=== PATIENT | male | born 1985 | race Hispanic/Latino ===

== ENCOUNTER 2017-11-29 09:19 | Emergency (ER) | payer SELFPAY ==
[2017-11-29] MEDS ORDERED: Ketorolac Tromethamine 60 MG/2 ML VIAL ONE (10:14)
--- NOTE | 2017-11-29 10:40 | RAD ---
AP VIEW CHEST: Date: 11/29/17 INDICATION: 32-year-old male with chest pain while working. The patient is experiencing chest pain, predominantly with breathing in. COMPARISON: None. FINDINGS: Low lung volumes are present. No air space consolidation, pleural effusion, or pneumothorax is eviden t. Cardiomediastinal silhouette and pulmonary vasculature are normal appearing. No pleural effusion o r pneumothorax is demonstrated. No acute osseous abnormality is evident. IMPRESSION: 1. Low lung volumes. 2. No definite acute cardiopulmonary abnormality. POS: CINDI
== END 2017-11-29 10:26 | disposition home or self-care (01) ==
LOC: ERS 09:19
DX: S29.011A Strain of muscle and tendon of front wall of thorax, initial encounter (principal); Y99.0 Civilian activity done for income or pay
CPT/HCPCS: 71045; 93005; 96372; J1885

== ENCOUNTER 2019-03-20 02:59 | Emergency (ER) | payer SELFPAY ==
[2019-03-20] MEDS ORDERED: Ibuprofen 800 MG TAB ONE (03:07)
[2019-03-20] MEDS ORDERED: Acetaminophen 500 MG TAB ONE (03:07)
--- NOTE | 2019-03-20 09:12 | RAD ---
2 VIEW CHEST: Date: 03/20/19 COMPARISON: 11/29/17. INDICATION: Fever and cough, new onset. FINDINGS: No lobar consolidation or effusion. No discrete pneumothorax. Cardiac silhouette is normal in size. IMPRESSION: No focal consolidation. POS: C
== END 2019-03-20 05:22 | disposition home or self-care (01) ==
LOC: ERS 02:59
DX: J02.9 Acute pharyngitis, unspecified (principal)
CPT/HCPCS: 71046; 87081; 87430; 87804